=== PATIENT | female | born 1970 | race Caucasian/White ===

== ENCOUNTER 2021-08-12 20:49 | Observation (INO) | payer MEDICARE, OTHER ==
[~2021-08-12] VITALS: Ht 167.6 cm; Wt 54.4 kg
[2021-08-12 22:53] LABS: HEMOGLOBIN 14.1 gm/dl (12.3-15.3); RED BLOOD COUNT 4.8 M/UL (4.00-5.10); WHITE BLOOD COUNT 18.6 K/UL (4.5-11.0)
[2021-08-12 23:17] LABS: BUN/CREATININE RATIO 18 (0-10)
[2021-08-13 05:05] LABS: BUN/CREATININE RATIO 20 (0-10)
[2021-08-13] MEDS ORDERED: PROTONIX 40 MG40 M1 PO (10:20)
[2021-08-14 09:03] LABS: RED BLOOD COUNT 4.08 M/UL (4.00-5.10); WHITE BLOOD COUNT 9.6 K/UL (4.5-11.0)
[2021-08-14 09:04] LABS: HEMOGLOBIN 11.7 gm/dl (12.3-15.3)
[2021-08-14 09:22] LABS: BUN/CREATININE RATIO 13 (0-10)
== END 2021-08-14 12:09 | disposition left against medical advice (07) ==
LOC: ER1 20:49 → CDU 08-13 08:36 → MED SURG 4 08-13 10:24
PROVIDERS: Family Medicine; Physician Assistant; ADMIT Internal Medicine
DX: R07.89 Other chest pain (principal); R10.32 Left lower quadrant pain; K21.9 Gastro-esophageal reflux disease without esophagitis; J96.01 Acute respiratory failure with hypoxia; E86.0 Dehydration; E87.6 Hypokalemia; K59.00 Constipation, unspecified; E87.3 Alkalosis; N20.0 Calculus of kidney; R94.31 Abnormal electrocardiogram [ECG] [EKG]; Z53.29 Procedure and treatment not carried out because of patient's decision for other reasons; Z72.0 Tobacco use; Z23 Encounter for immunization; Z98.51 Tubal ligation status; Z20.822 Contact with and (suspected) exposure to COVID-19
CPT/HCPCS: 36415; 71045; 80048; 80053; 82550; 82553; 83690; 83735; 83874; 84484; 85025; 93005; 94760; C9113; G0378; J2405; J7030; J7120; Q9967; U0002